=== PATIENT | male | born 1970 | race Caucasian/White ===

== ENCOUNTER 2021-07-16 14:04 | Emergency (ER) | payer OTHER ==
[~2021-07-16] VITALS: Ht 172.7 cm; Wt 89.0 kg
[2021-07-16] MEDS ORDERED: TETANUS, DIPHTHERIA, PERTUSSIS VAC/PF 0.5ML (>10YR OLD) IM ONE (15:00)
[2021-07-16] MEDS ORDERED: HYDROCODONE/ACETAMINOPHEN 5/325MG TABLET PO ONE (15:00)
[2021-07-16] MEDS ORDERED: PIPERACILLIN/TAZ 3.375G PREMIX 50 ML IV NR (15:00)
[2021-07-16] MEDS ORDERED: PIPERACILLIN/TAZOBACTAM 3.375GM/50ML PREMIX IV ONE (15:00)
[2021-07-16] MEDS ORDERED: VANCOMYCIN 1G PREMIX 200 ML IV SCH (15:00)
[2021-07-16 15:28] LABS: BASOPHILS % 0.3 % (0.0-2.0); EOSINOPHILS % 1.8 % (0.0-5.0); HEMATOCRIT. 40.6 % (42.0-52.0); HEMOGLOBIN. 13.7 g/dL (14.0-18.0); LYMPHOCYTES % 21.8 % (20.0-50.0); MEAN CORPUSCULAR HEMOGLOBIN 30.9 pg (28.0-32.0); MEAN CORPUSCULAR VOLUME 91.4 fL (80.0-94.0); MONOCYTES % 8.9 % (2.0-8.0); NEUTROPHILS % 67.2 % (40.0-76.0); PLATELET 242 x1000/uL (130-400); RED BLOOD CELL COUNT 4.44 mill/uL (4.7-6.1); RED CELL DISTRIBUTION WIDTH 12.8 % (11.6-14.6)
[2021-07-16 15:30] LABS: CHLORIDE 103 mEq/L (98-107)
[2021-07-16] MEDS ORDERED: VANCOMYCIN 1GM PMX (XELLIA) 200 ML IV NR (17:15)
[2021-07-16 17:39] VITALS: BP 144/55
== END 2021-07-16 17:47 | disposition short-term general hospital (02) ==
LOC: ER 14:04
DX: L03.115 Cellulitis of right lower limb (principal)
CPT/HCPCS: 36415; 80053; 85025; 87040; 90471; 90715; 93971; 96365; 96367; 99285; J2543; J3370